=== PATIENT | male | born 1995 ===

== ENCOUNTER 2017-08-12 17:22 | Emergency (ER) | payer SELFPAY ==
[2017-08-12 23:58] LABS: Basophils % (Auto) 0.5 % (0.0-1.8); Eosinophils # (Auto) 0.2 K/mm3 (0.0-0.4); Eosinophils % (Auto) 3.4 % (0.0-4.3); Hematocrit 47.3 % (35.5-45.6); Hemoglobin 16.1 gm/dl (11.8-15.2); Lymphocytes # (Auto) 1.9 K/mm3 (1.2-5.4); Lymphocytes % (Auto) 26.3 % (13.4-35.0); Mean Corpuscular HGB Conc 34 % (32-34); Mean Corpuscular Hemoglobin 30 pg (28-32); Mean Corpuscular Volume 87 fl (84-94); Monocytes # (Auto) 0.4 K/mm3 (0.0-0.8); Monocytes % (Auto) 5.3 % (0.0-7.3); Platelet Count 233 K/mm3 (140-440); Red Blood Count 5.45 M/mm3 (3.65-5.03); Red Cell Distribution Width 14.1 % (13.2-15.2)
[2017-08-13 00:08] LABS: Alanine Aminotransferase 13 units/L (7-56); Albumin 4.5 g/dL (3.9-5); BUN/Creatinine Ratio 11; Blood Urea Nitrogen 12 mg/dL (9-20); Calcium 9.3 mg/dL (8.4-10.2); Hemolysis Index 29
--- NOTE | 2017-08-13 00:33 | Emergency Department Report ---
HPI - General Chief Complaint: Upper Respiratory Infection Time Seen by Provider: 08/13/17 00:11 - [facility] HPI: Room 21 The patient is 22-year-old male presenting with chief complaint of right testicular pain. The patient states she's had intermittent pain in his right testicle for several years and most recent episode occurred over the past 3-4 months. Patient states he has not noticed swelling or dysuria or fever recently. The patient states she has not sought medical attention for it yet. The patient also admits to a cough for 1 month Location: Right testicle Duration: [See above] Quality: Pain Severity: [See above] Modifying factors: [see above] Context: [see above] Mode of transportation: Unknown ED Past Medical Hx - Past Medical History Previous Medical History?: No Hx Asthma: Yes - Surgical History Past Surgical History?: No - Family History Family history: no significant - Social History Smoking Status: Current Every Day Smoker (approximately one half pack per day) Substance Use Type: None (denies illicit drug use) - Medications Home Medications: Home Medications Medication Instructions Recorded Confirmed Last Taken Type Benzonatate [Tessalon Perle] 100 mg PO TID PRN #30 capsule 08/13/17 Unknown Rx Ibuprofen [Motrin] 800 mg PO Q8HR PRN #20 tablet 08/13/17 Unknown Rx ED Review of Systems ROS: Stated complaint: COLD Other details as noted in HPI Constitutional: denies: fever ENT: throat pain Respiratory: cough Genitourinary: testicular pain. denies: dysuria Physical Exam - Physical Exam Vital Signs: Vital Signs 08/12/17 17:30 Temperature 97.4 F L Pulse Rate 101 H Respiratory 18 Rate Blood Pressure 128/46 O2 Sat by Pulse 100 Oximetry Physical Exam: GENERAL: The patient is well-developed well-nourished male sitting on stretcher not appearing to be in acute distress. [] HEENT: Normocephalic. Atraumatic. Extraocular motions are intact. Patient has moist mucous membranes. NECK: Supple. No meningitic signs are noted. There is no adenopathy noted. CHEST/LUNGS: Clear to auscultation. There is no respiratory distress noted. HEART/CARDIOVASCULAR: Regular. There is no tachycardia. There is no gallop rub or murmur. ABDOMEN: Abdomen is soft, nontender. Patient has normal bowel sounds. There is no abdominal distention. SKIN: There is no rash. There is no edema. There is no diaphoresis. NEURO: The patient is awake, alert, and oriented. The patient is cooperative. The patient has normal speech and gait. MUSCULOSKELETAL: There is no evidence of acute injury. GENITOURINARY: No evidence of testicular swelling. Normal right cremasteric reflex ED Course Vital Signs 08/12/17 17:30 Temperature 97.4 F L Pulse Rate 101 H Respiratory 18 Rate Blood Pressure 128/46 O2 Sat by Pulse 100 Oximetry ED Medical Decision Making - Lab Data Result diagrams: 08/12/17 23:32 08/12/17 23:32 - Radiology Data Radiology results: report reviewed (testicular ultrasound), image reviewed ( testicular ultrasound, chest x-ray) interpreted by me: Chest x-ray-no focal infiltrates, no pneumothorax FINAL REPORT EXAM: US TESTICULAR DOPPLER COMP HISTORY: right testicle pain TECHNIQUE: Routine sonographic evaluation was obtained of the scrotum with Doppler interrogation of both testicles. FINDINGS: The right testicle is normal size, contour, blood flow, and echotexture measuring 4.6 cm x 1.9 cm x 3.1 cm. There is a right epididymal cyst measuring 1.8 cm in diameter. There is no evidence of right-sided hydrocele. The left testicle is normal size, blood flow, contour, and echotexture measuring 4.3 cm x 2.3 cm x 3.1 cm. The left epididymis appears normal. There is no evidence of hydrocele. IMPRESSION: No evidence of testicular torsion, or neoplasia Right epididymal cysts measuring 1.8 cm in diameter. No evidence of hydrocele or varicocele. Transcribed By: RB Dictated By: WILLIS ESCAMILLA MD Electronically Authenticated By: WILLIS ESCAMILLA MD Signed Date/Time: 08/12/172057 DD/ 57 TD/TT: 08/12/172057 - Differential Diagnosis testicular torsion, epididymitis, hydrocele, bronchitis Critical care attestation.: If time is entered above; I have spent that time in minutes in the direct care of this critically ill patient, excluding procedure time. ED Disposition Clinical Impression: Cough, Epididymal cyst Disposition: DC-01 TO HOME OR SELFCARE Is pt being admited?: No Does the pt Need Aspirin: No Condition: Stable Additional Instructions: Return to the emergency department immediately should you develop worsening symptoms, fever, inability to tolerate food or liquid or any other concerns. Prescriptions: Benzonatate [Tessalon Perle] 100 mg PO TID PRN #30 capsule PRN Reason: Cough Ibuprofen [Motrin] 800 mg PO Q8HR PRN #20 tablet PRN Reason: Pain Referrals: YADY SCHUMACHER MD [Primary Care Provider] - 3-5 Days [facility] [Outside] - 3-5 Days ALEC HERNANDEZ MD [Staff Physician] - 3-5 Days (Dr. Hernandez is a urologist. Please follow-up with him for further evaluation of your right epididymal cyst) Time of Disposition: 01:31
--- NOTE | 2017-08-13 01:01 | Ultrasound Report ---
FINAL REPORT EXAM: US TESTICULAR DOPPLER COMP HISTORY: right testicle pain TECHNIQUE: Routine sonographic evaluation was obtained of the scrotum with Doppler interrogation of both testicles. FINDINGS: The right testicle is normal size, contour, blood flow, and echotexture measuring 4.6 cm x 1.9 cm x 3.1 cm. There is a right epididymal cyst measuring 1.8 cm in diameter. There is no evidence of right-sided hydrocele. The left testicle is normal size, blood flow, contour, and echotexture measuring 4.3 cm x 2.3 cm x 3.1 cm. The left epididymis appears normal. There is no evidence of hydrocele. IMPRESSION: No evidence of testicular torsion, or neoplasia Right epididymal cysts measuring 1.8 cm in diameter. No evidence of hydrocele or varicocele.
[2017-08-13 01:13] LABS: Bilirubin,Urine NEG (Negative); Blood,Urine NEG (Negative); Color,Urine Yellow (Yellow); Nitrite,Urine NEG (Negative); Protein,Urine <15 mg/dL mg/dL (Negative); WBC,Urine < 1.0 /HPF (0.0-6.0)
--- NOTE | 2017-08-13 01:13 | XRay Report ---
FINAL REPORT EXAM: XR CHEST ROUTINE 2V HISTORY: cough TECHNIQUE: PA and lateral views of the chest were submitted. FINDINGS: The heart size and mediastinum appear normal. The lungs are clear. Pleural fluid is not seen. The skeletal structures reveal a mild levoscoliosis of the thoracic spine. IMPRESSION: No active chest disease.
[2017-08-13 01:40] VITALS: BP 128/72
== END 2017-08-13 01:50 | disposition home or self-care (01) ==
LOC: ED 17:22
DX: N50.3 Cyst of epididymis (principal); R05 Cough; J45.909 Unspecified asthma, uncomplicated; F17.210 Nicotine dependence, cigarettes, uncomplicated
CPT/HCPCS: 36415; 71046; 80053; 81001; 85025; 93975

== ENCOUNTER 2018-03-05 15:47 | Emergency (ER) | payer SELFPAY ==
[2018-03-05 16:34] VITALS: BP 137/86
--- NOTE | 2018-03-05 19:32 | Emergency Department Report ---
Chief Complaint: Urogenital-Male Stated Complaint: STD CHECK Time Seen by Provider: 03/05/18 19:27 - HPI History of Present Illness: Year-old -[place] male presents to the emergency room for STD checkup. Patient reports that he has too many sexual partners. Patient denies any painful urination denies any penile discharge denies any hematuria no abdominal pain or back pain no fever no chills. - Exam Vital Signs: Vital Signs 03/05/18 16:31 Temperature 98.8 F Pulse Rate 69 Respiratory 18 Rate Blood Pressure 137/86 O2 Sat by Pulse 99 Oximetry Physical Exam: Patient's alert and oriented 3 no acute distress nontoxic in appearance Respirations are 16 Cardiovascular S1-S2 regular rate and rhythm respiratory clear to auscultation MSE screening note: Focused history and physical exam performed. Due to findings the following was ordered: Discussed with patient that he needs to follow-up with the health Department as they're able to do full STD checkup which include HIV hepatitis syphilis and herpes as well as GC chlamydia. Community resource handout given to patient for resources. ED Disposition for MSE Condition: Stable
== END 2018-03-05 19:27 | disposition left against medical advice (07) ==
LOC: ED 15:47
DX: Z11.3 Encounter for screening for infections with a predominantly sexual mode of transmission (principal)
CPT/HCPCS: 99281